=== PATIENT | female | born 1945 | race Caucasian/White ===

== ENCOUNTER 2024-10-21 12:28 | Emergency (ER) | payer MEDICARE, BC ==
[~2024-10-21] VITALS: Ht 167.6 cm; Wt 65.8 kg
[2024-10-21] MEDS ORDERED: KETOROLAC TROMETHAMINE 15 MG/ML VIAL ONE (13:25)
[2024-10-21] MEDS ORDERED: ONDANSETRON HCL/PF 4 MG/2 ML VIAL ONE (13:25)
[2024-10-21 13:26] LABS: PLATELET COUNT (AUTO) 244 K/uL (150-450); RED BLOOD CELL COUNT(AUTO) 5.03 MIL/uL (4.0-5.2); RED CELL DISTRIBUTION WIDTH 12.7 % (11.5-15.0); WHITE BLOOD COUNT (AUTO) 14.0 K/uL (4.3-11.0)
[2024-10-21] MEDS ORDERED: FAMOTIDINE/PF INJ 20 MG/2 ML VIAL IV ONE (13:26)
[2024-10-21] MEDS: IV NS 0.9% 1,000 ML BAG IV ONE (13:34)
[2024-10-21] MEDS: FAMOTIDINE/PF INJ 20 MG/2 ML VIAL IV ONE (13:35)
[2024-10-21] MEDS: KETOROLAC TROMETHAMINE 15 MG/ML VIAL IV ONE (13:35)
[2024-10-21 13:36] VITALS: TEMP 97.8
[2024-10-21] MEDS: ONDANSETRON HCL/PF 4 MG/2 ML VIAL IVP ONE (13:36)
[2024-10-21 13:42] LABS: APPEARANCE,URINE SLIGHTLY CLOUDY (CLEAR); BLOOD, URINE 2+ Ery/uL (NEGATIVE); LEUKOCYTE ESTERASE ,URINE NEGATIVE (NEGATIVE); NITRITE, URINE NEGATIVE (NEGATIVE); UGLUCOSE NEGATIVE (NEGATIVE)
[2024-10-21 13:48] LABS: ASPARTATE AMINOTRANSFERASE 16.0 U/L (15-37); CALCIUM, SERUM 9.7 mg/dL (8.5-10.1); CREATININE 1.1 mg/dL (0.6-1.3); SODIUM SERUM 141.0 mmol/L (136-145); TOTAL PROTEIN, SERUM 7.2 g/dL (6.4-8.2); UREA NITROGEN, BLOOD 13.0 mg/dL (7-18)
[2024-10-21 13:56] LABS: ADD URINE CULTURE NO
[2024-10-21] MEDS ORDERED: KETO10TA2 PO (14:55)
[2024-10-21] MEDS ORDERED: CEPH-570 PO (14:55)
[2024-10-21] MEDS ORDERED: TAMS-12 PO (14:55)
[2024-10-21 15:56] VITALS: BP 130/72; O2SAT 99
== END 2024-10-21 15:40 | disposition home or self-care (01) ==
LOC: ER 12:48
DX: N13.2 Hydronephrosis with renal and ureteral calculous obstruction (principal)
CPT/HCPCS: 99285; 74176; 96374; 96375; 96361; 85025; 80048; 83690; 80076; 81001; 36415; J1885; J1308; J2405; J7030; 87086-TC